=== PATIENT | male | born 1960 | race Caucasian/White ===

== ENCOUNTER 2020-03-08 16:18 | Inpatient (IN) | payer BC ==
[~2020-03-08] VITALS: Ht 180.3 cm; Wt 98.7 kg
[2020-03-08 17:10] LABS: BASOPHILS ABSOLUTE AUTO 0.05 K/mm3 (0.00-0.23); BASOPHILS PERCENT AUTO 1 % (0-2); EOSINOPHILS ABSOLUTE AUTO 0.09 K/mm3 (0.00-0.68); EOSINOPHILS PERCENT AUTO 1 % (0-6); IMMATURE GRAN ABSOLUTE AUTO 0.04 K/mm3 (0.00-0.10); IMMATURE GRAN PERCENT AUTO 0 % (0-1); LYMPHOCYTES ABSOLUTE AUTO 1.99 K/mm3 (0.84-5.20); LYMPHOCYTES PERCENT AUTO 19 % (21-46); MONOCYTES ABSOLUTE AUTO 1.64 K/mm3 (0.16-1.47); MONOCYTES PERCENT AUTO 15 % (4-13); Mean Corpuscular HGB 23.8 pg (26.0-34.0); Mean Corpuscular HGB Conc 28.1 g/dL (31.5-36.5); Mean Corpuscular Volume 85 fL (80-100); Mean Platelet Volume 10.1 fL (9.1-12.4); NEUTROPHILS ABSOLUTE AUTO 6.91 K/mm3 (1.96-9.15); NEUTROPHILS PERCENT AUTO 64 % (41-73); Platelet Count 326 K/mm3 (150-400); RDW Coefficient Variation 21.1 % (11.7-14.2); RDW Standard Deviation 64.8 fL (35.1-46.3); Red Blood Cell Count 2.02 M/mm3 (4.30-5.90); White Blood Cell Count 10.72 K/mm3 (4.00-11.30)
[2020-03-08 17:17] LABS: Hematocrit 17.1 % (37.0-53.0)
[2020-03-08 17:18] LABS: Hemoglobin 4.8 g/dL (13.5-17.5)
[2020-03-08 17:29] LABS: Alanine Aminotransfer (ALT/SGP 65 U/L (12-78); Albumin, Blood 3.4 g/dL (3.4-5.0); Albumin/Globulin Ratio 0.7 (0.8-1.8); Alk Phos 78 U/L (50-136); Anion Gap 7 mmol/L (6-16); Aspartate Aminotrans (AST/SGOT 150 U/L (12-37); Bilirubin, Total 0.5 mg/dL (0.1-1.0); Blood Urea Nitrogen 29 mg/dL (8-24); Bun/Creatinine Ratio 22.7 (12.0-20.0); CO2, Blood 22 mmol/L (21-32); Calcium, Blood 8.7 mg/dL (8.5-10.1); Chloride, Blood 110 mmol/L (98-108); Creatinine, Blood 1.28 mg/dL (0.60-1.20); Globulin, Blood 4.7 g/dL (2.2-4.0); Glomerular Filtration Rate >60 (60-); Glucose, Blood 103 mg/dL (70-99); Potassium, Blood 3.8 mmol/L (3.5-5.5); Sodium, Blood 139 mmol/L (136-145); Total Protein, Blood 8.1 g/dL (6.4-8.2)
[2020-03-08] MEDS ORDERED: ASPI325EC PO (19:07)
[2020-03-08 19:20] LABS: International Normalized Ratio 1.03
--- NOTE | 2020-03-08 21:15 | NUR ---
RECEIVED PT FROM ER TOYA BULLARD. PT A&OX3. DENIES PAIN OR NAUSEA. PT HAS HX-HTN. HAS BEEN HAVING BLACK STOOLS FOR APROXIMATELY 1 MONTH. EARLIER TODAY, HE BECAME DIZZY AND SOUGHT MEDICAL ATTENTION. HE WAS FOUND TO BE QUITE ANEMIC WITH H&H 4.8/17.1-ER GAVE 2 UNITS PRBC'S. PT SKIN PALE, BUT WARM AND DRY. HE DENIES DIZZINESS AT PRESENT. ECG SHOWS ST WITH RATE 110'S. BP STABLE. LUNGS CLEAR-NO NOTED SOB. SATS>90% ON RA. PROTONIX BOLUS OF 80 MG IVP X 1 GIVEN, THEN PROTONIX DRIP @ 8 MG/HR INITIATED. ANTICIPATE TRANSFUSING ONE MORE UNIT PRBC'S AND THEN RE-CHECK H&H. DR. HDZ NOTIFIED OF CONSULT. PT TO REMAIN NPO FOR POSSIBLE EGD IN AM- DR. HDZ WISHES FOR CARDIOLOGY TO SEE PT TO CLEAR FOR SENIOR MAINTENANCE MECHANIC PT HAD ELEVATED TROPONIN AND ST DEPRESSION ON 12 LEAD ECG. DISCUSSED THE REQUEST FOR CARDIOLOGY CLEARANCE WITH JOSE BLACK-SHE WILL DISCUSS WITH HOSPITALIST IN AM.
[2020-03-08 21:30] LABS: Percent Saturation 2.7 % (20.0-50.0)
--- NOTE | 2020-03-08 22:28 | NUR ---
THIRD UNIT OF PRBC'S TRANSFUSING. PT DENIES COMPLAINTS. HR CONTINUES IN THE 100'S. PT ABLE TO POSITION HIMSELF IN BED. URINAL AND CALL LIGHT PLACED WITHIN PT REACH. PT WILL CALL FOR ASSISTANCE PRN.
--- NOTE | 2020-03-09 00:24 | NUR ---
3RD UNIT OF PRBC'S COMPLETE. VS REMAIN STABLE. LUNGS CLEAR. PT DENIES COMPLAINTS. HE CONTINUES TO POSITION HIMSELF IN BED WITHOUT DIFFICULTY. TROP TO BE DRAWN AT 0100-WILL RE-CHECK H&H AT THAT TIME WELL.
[2020-03-09 01:11] LABS: Hematocrit 22.5 % (37.0-53.0)
--- NOTE | 2020-03-09 01:14 | NUR ---
TROP AND H&H DRAWN. PT UTILIZED CALL SYSTEM TO REQUEST ASSISTANCE USING THE URINAL. PT ABLE TO STAND AT THE BEDSIDE AND USE URINAL WITHOUT DIFFICULTY-VOIDED 300 CC DARK, YELLOW URINE.
--- NOTE | 2020-03-09 02:00 | NUR ---
PRBC UNIT #4 TRANSFUSING. PT ONLY COMPLAINT IS THAT HE HASN'T BEEN ABLE TO SLEEP TONIGHT.
--- NOTE | 2020-03-09 04:17 | NUR ---
#4 UNIT PRBC'S TRANSFUSING. PT RESTING QUIETLY WHEN NOT DISTURBED. HR NOW 90'S BP STABLE. WILL RE-CHECK H&H ONCE PRBC'S COMPLETE-AM LABS TO BE DRAWN AT THAT TIME WELL.
[2020-03-09 05:01] LABS: BASOPHILS ABSOLUTE AUTO 0.04 K/mm3 (0.00-0.23); BASOPHILS PERCENT AUTO 1 % (0-2); EOSINOPHILS ABSOLUTE AUTO 0.13 K/mm3 (0.00-0.68); EOSINOPHILS PERCENT AUTO 2 % (0-6); Hematocrit 27.8 % (37.0-53.0); Hemoglobin 8.7 g/dL (13.5-17.5); IMMATURE GRAN ABSOLUTE AUTO 0.04 K/mm3 (0.00-0.10); IMMATURE GRAN PERCENT AUTO 1 % (0-1); LYMPHOCYTES ABSOLUTE AUTO 1.82 K/mm3 (0.84-5.20); LYMPHOCYTES PERCENT AUTO 30 % (21-46); MONOCYTES ABSOLUTE AUTO 0.69 K/mm3 (0.16-1.47); MONOCYTES PERCENT AUTO 11 % (4-13); Mean Corpuscular HGB 25.8 pg (26.0-34.0); Mean Corpuscular HGB Conc 31.3 g/dL (31.5-36.5); Mean Corpuscular Volume 83 fL (80-100); Mean Platelet Volume 10.1 fL (9.1-12.4); NEUTROPHILS ABSOLUTE AUTO 3.44 K/mm3 (1.96-9.15); NEUTROPHILS PERCENT AUTO 56 % (41-73); Platelet Count 232 K/mm3 (150-400); RDW Coefficient Variation 18.6 % (11.7-14.2); RDW Standard Deviation 55.1 fL (35.1-46.3); Red Blood Cell Count 3.37 M/mm3 (4.30-5.90); White Blood Cell Count 6.16 K/mm3 (4.00-11.30)
[2020-03-09 05:17] LABS: Anion Gap 7 mmol/L (6-16); Blood Urea Nitrogen 24 mg/dL (8-24); Bun/Creatinine Ratio 19.8 (12.0-20.0); CO2, Blood 22 mmol/L (21-32); Calcium, Blood 8.2 mg/dL (8.5-10.1); Chloride, Blood 110 mmol/L (98-108); Creatinine, Blood 1.21 mg/dL (0.60-1.20); Glomerular Filtration Rate >60 (60-); Glucose, Blood 96 mg/dL (70-99); Potassium, Blood 4.3 mmol/L (3.5-5.5); Sodium, Blood 139 mmol/L (136-145)
--- NOTE | 2020-03-09 05:54 | NUR ---
PT APPEARS TO BE SLEEPING. NO NOTED DISTRESS.
--- NOTE | 2020-03-09 07:22 | NUR ---
REC'D REPORT FROM MALCOLM KIDD, AND AM NO ASSUMING CARE OF THIS PT.
--- NOTE | 2020-03-09 07:23 | NUR ---
CALLED IN CARDIO CONSULT TO DR RAMIREZ AND GI CONSULT TO DR HDZ PER ANSWERING SERVICE.
--- NOTE | 2020-03-09 07:48 | NUR ---
AM ASSESSMENT: PT IS ALERT AND ORIENTED X3. PLEASANT AND COOPERATIVE WITH CARE. PT INDEPENDENT IN ROOM AND USES CALL LIGHT APPROPRIATELY. EDUCATED PT ON PENDING CARDIO/GI CONSULTS. PT DENIES ANY PAIN/CHEST PAIN/NAUSEA. LUNGS ARE CLEAR T/O BILATERALLY. SP02 >90% ON RA. HR REGULAR, ST-LOW 100'S RANGE. PROTONIX GTT INFUSING FOR GIB. ABD SLIGHTLY DISTENDED/NON-TENDER TO PALPATION. BT'S HYPOACTIVE X4 QAUDS. PT NPO AT THIS TIME. PENDING GI CONSULT. CARDIO CONSULT FIRST, R/T ELEVATED TROPONIN, TO CLEAR PT PRIOR TO GI CONSULT.
--- NOTE | 2020-03-09 08:05 | NUR ---
DR CHARLTON IN TO ASSESS PT. DR RAMIREZ UPDATED DR GONZALES AND PT HAS BEEN CLEARED BY CARDIO FOR GI DR TO F/U AT THIS POINT. DISCUSSED F/U H+H'S WITH DR GONZALES, NONE ARE ORDERED.
[2020-03-09 08:57] LABS: Hematocrit 25.3 % (37.0-53.0)
--- NOTE | 2020-03-09 09:06 | NUR ---
Echocardiogram completed.
--- NOTE | 2020-03-09 10:53 | NUR ---
DR HDZ IN TO ASSESS PT. PLANS TO SCOPE PT AROUND NOON.
--- NOTE | 2020-03-09 13:19 | NUR ---
PT UPDATE: PT CURRENTLY BEING SCOPED PER DAY SURGERY TEAM/ANESTHESIA/DR HDZ. SEE OPERATIVE NOTES.
--- NOTE | 2020-03-09 13:24 | NUR ---
POST ENDOSCOPY: ENDO COMPLETE. PT REMAINS STABLE. AREAS OF BLEEDING CLIPPED/INJECTED WITH EPI. PT NOW MEDICAL STATUS, NO TELEMETRY. NURSING SERVICE STATION MANAGER AWARE.
--- NOTE | 2020-03-09 13:47 | NUR ---
03/09/20 1347 FELICE BERRY LATE ENTRY 1307 History, Chart, Medications and Allergies reviewed before start of procedure. 3-LEAD EKG REVIEWED WITH PHYSICIAN PRIOR TO START OF PROCEDURE. O2 VIA N/C INTACT THROUGHOUT SEDATION/PROCEDURE. MONITOR INTACT WITH CONTINUOUS PULSE OXIMETRY AND INTERMITTENT BP. MAC WITH DR. WARD.
[2020-03-09 14:28] LABS: Hematocrit 28.1 % (37.0-53.0); Hemoglobin 8.7 g/dL (13.5-17.5)
--- NOTE | 2020-03-09 14:47 | NUR ---
REPORTED OFF TO MALCOLM COFFEY WHOM WILL ASSUME CARE OF THIS PT ONCE PT MOVES TO 312.
--- NOTE | 2020-03-09 15:00 | NUR ---
PT TRANSFERRED: PT TNX'D TO 312 VIA W/C, PER WENDI KING. CHART AND ALL PT BELONGINGS SENT WITH PT.
--- NOTE | 2020-03-09 17:19 | NUR ---
new pt from [facility], family in visiting, call light in reach, indapendant in rm, call light in reach, 2 iv's in l arm, rm air, denies dizzyness will continue to monitor and treat as until share bsr with staff and pt
[2020-03-09 20:47] LABS: Hemoglobin 8.6 g/dL (13.5-17.5)
[2020-03-10 04:16] LABS: Hematocrit 26.7 % (37.0-53.0); Hemoglobin 8.3 g/dL (13.5-17.5); Mean Corpuscular HGB 25.7 pg (26.0-34.0); Mean Corpuscular HGB Conc 31.1 g/dL (31.5-36.5); Mean Corpuscular Volume 83 fL (80-100); Platelet Count 276 K/mm3 (150-400); RDW Standard Deviation 57.1 fL (35.1-46.3); Red Blood Cell Count 3.23 M/mm3 (4.30-5.90); White Blood Cell Count 10.88 K/mm3 (4.00-11.30)
[2020-03-10 04:39] LABS: Bun/Creatinine Ratio 12.6 (12.0-20.0); Calcium, Blood 8.1 mg/dL (8.5-10.1); Creatinine, Blood 1.35 mg/dL (0.60-1.20); Magnesium, Blood 2.1 mg/dL (1.6-2.4)
--- NOTE | 2020-03-10 06:46 | NUR ---
SHIFT SUMMARY PATIENT ALERT AND ORIENTED. ABLE TO AMBULATE AROUND HIS ROOM INDEPENDENTLY WITH NO COMPLAINTS OF DIZZINESS. TELEMETRY IN PLACE AND RUNNING SINUS RHYTHM. IV IN PATIENT'S LEFT WRIST REMOVED AT HIS REQUEST. IV IN LEFT AC PATENT AND FLUSHED. BED IN LOWEST POSITION WITH WHEELS LOCKED. CALL LIGHT AND BELONGINGS WITHIN REACH. REPORT GIVEN TO ONCOMING RN.
[2020-03-10 13:36] LABS: Hematocrit 27.6 % (37.0-53.0); Hemoglobin 8.4 g/dL (13.5-17.5); Mean Corpuscular HGB 25.8 pg (26.0-34.0); Mean Corpuscular HGB Conc 30.4 g/dL (31.5-36.5); Mean Corpuscular Volume 85 fL (80-100); Mean Platelet Volume 9.9 fL (9.1-12.4); Platelet Count 284 K/mm3 (150-400); RDW Coefficient Variation 19.4 % (11.7-14.2); RDW Standard Deviation 59.6 fL (35.1-46.3); Red Blood Cell Count 3.25 M/mm3 (4.30-5.90); White Blood Cell Count 9.91 K/mm3 (4.00-11.30)
[2020-03-10] MEDS ORDERED: Acetaminophen325 M1 PO (16:23)
[2020-03-10] MEDS ORDERED: Isosorbide Mono30 MG PO (16:24)
[2020-03-10] MEDS ORDERED: ATOR80 PO (16:24)
[2020-03-10] MEDS ORDERED: METO50ER PO (16:25)
[2020-03-10] MEDS ORDERED: TORSE20 PO (16:26)
[2020-03-10] MEDS ORDERED: PANT40 PO (16:27)
[2020-03-10] MEDS ORDERED: FEROSUL325 M1 PO (16:28)
[2020-03-10] MEDS ORDERED: MIRALAX17 GM PO (16:29)
--- NOTE | 2020-03-10 17:00 | NUR ---
DISCHARGE SUMMARY PT DISCHARGED TO HOME. PT LEFT ROOM JUST PRIOR TO THIS NOTE VIA STEADY GAIT WITH IT PROGRAMMER ANS SPOUSE ESCORT. PT EDUCATED ON ALL DISCHARGE INSTRUCTIONS, ALL QUESTIONS ANSWERED AND PT AGREES TO FOLLOW UP WITH PCP, GI AND CARIOLOGIST ORDERED. IV REMOVED AND BELONGINGS RETURNED.
== END 2020-03-10 17:05 | disposition home or self-care (01) | DRG 377 ==
LOC: ER 16:18 → ICUE 16:19 → ICUW 16:19 → ICUE 21:09 → MEDS 03-09 13:53 → ICUE 03-09 13:54 → MEDS 03-09 15:04
PROVIDERS: Hospitalist; Internal Medicine; Nurse Practitioner Acute Care; Physician Assistant; Student in an Organized Health Care Education/Training Program; ADMIT Internal Medicine
PROC: 0DD68ZX Extraction of Stomach, Via Natural or Artificial Opening Endoscopic, Diagnostic (ICD-10-PCS; 2020-03-09)
PROC: 30233N1 Transfusion of Nonautologous Red Blood Cells into Peripheral Vein, Percutaneous Approach (ICD-10-PCS; principal; 2020-03-09 12:45)
PROC: 0W3P8ZZ Control Bleeding in Gastrointestinal Tract, Via Natural or Artificial Opening Endoscopic (ICD-10-PCS; 2020-03-09 12:45)
DX: K25.4 Chronic or unspecified gastric ulcer with hemorrhage (principal); I21.4 Non-ST elevation (NSTEMI) myocardial infarction; D62 Acute posthemorrhagic anemia; I50.30 Unspecified diastolic (congestive) heart failure; Z79.82 Long term (current) use of aspirin; I25.10 Atherosclerotic heart disease of native coronary artery without angina pectoris; I34.0 Nonrheumatic mitral (valve) insufficiency; I11.0 Hypertensive heart disease with heart failure; I50.9 Heart failure, unspecified
CPT/HCPCS: 36415; 36430; 71046; 80048; 80053; 82272; 82728; 83540; 83550; 83735; 83880; 84100; 84484; 85014; 85018; 85025; 85027; 85610; 85730; 86850; 86900; 86901; 86920; 93005; 93010; 93306; 96374; 96375; 96376; 99285-25; A9270; A9270-GY; C9113; G0378; J0171; J2370; J2704; J2916; J7030; J7050; J7120; P9016

== ENCOUNTER → 2020-04-07 | Outpatient (CLI) | payer BC ==
[~2020-04-07] MED LIST: ASPI325EC PO; ATOR80 PO; Acetaminophen325 M1 PO; FEROSUL325 M1 PO; Isosorbide Mono30 MG PO; METO50ER PO; MIRALAX17 GM PO; PANT40 PO; TORSE20 PO
[2020-04-07 14:43] LABS: Anion Gap 8 mmol/L (6-16); Blood Urea Nitrogen 24 mg/dL (8-24); Bun/Creatinine Ratio 18.8 (12.0-20.0); CO2, Blood 23 mmol/L (21-32); Calcium, Blood 9.2 mg/dL (8.5-10.1); Chloride, Blood 109 mmol/L (98-108); Creatinine, Blood 1.28 mg/dL (0.60-1.20); Glomerular Filtration Rate >60 (60-); Glucose, Blood 163 mg/dL (70-99); Potassium, Blood 3.9 mmol/L (3.5-5.5); Sodium, Blood 140 mmol/L (136-145)
== END | disposition home or self-care (01) ==
LOC: LAB 10:15 → LAB SHORT 10:15
PROVIDERS: Family Medicine
DX: D64.9 Anemia, unspecified (principal); R35.1 Nocturia
CPT/HCPCS: 80048; G0103

== ENCOUNTER 2025-03-09 12:18 | Inpatient (IN) | payer BC ==
[~2025-03-09] VITALS: Ht 180.3 cm; Wt 97.4 kg
[~2025-03-09 12:18] MED LIST changes: +AMLO5 PO; +LOW DOSE ASPIRI81 M1; +PLAVIX75 MG PO
[2025-03-09] MEDS ORDERED: Diltiazem HCl 5 MG / ML 5ML Vial IV ONE ×2 (13:15→15:30)
[2025-03-09] MEDS ORDERED: NS 1,000 ML IV SCH ×2 (13:15→22:20)
[2025-03-09 13:31] LABS: BASOPHILS ABSOLUTE AUTO 0.04 K/mm3 (0.00-0.23); BASOPHILS PERCENT AUTO 0 % (0-2); EOSINOPHILS ABSOLUTE AUTO 0.05 K/mm3 (0.00-0.68); EOSINOPHILS PERCENT AUTO 0 % (0-6); Hematocrit 45.9 % (37.0-53.0); Hemoglobin 15.5 g/dL (13.5-17.5); IMMATURE GRAN ABSOLUTE AUTO 0.04 K/mm3 (0.00-0.10); IMMATURE GRAN PERCENT AUTO 0 % (0-1); LYMPHOCYTES PERCENT AUTO 11 % (21-46); MONOCYTES PERCENT AUTO 9 % (4-13); Mean Corpuscular HGB 32.8 pg (26.0-34.0); Mean Corpuscular HGB Conc 33.8 g/dL (31.5-36.5); Mean Corpuscular Volume 97 fL (80-100); Mean Platelet Volume 11.2 fL (9.1-12.4); NEUTROPHILS ABSOLUTE AUTO 9.35 K/mm3 (1.96-9.15); NEUTROPHILS PERCENT AUTO 79 % (41-73); Platelet Count 204 K/mm3 (150-400); RDW Coefficient Variation 12.7 % (11.7-14.2); RDW Standard Deviation 45.6 fL (35.1-46.3); Red Blood Cell Count 4.73 M/mm3 (4.30-5.90); White Blood Cell Count 11.88 K/mm3 (4.00-11.30)
[2025-03-09 13:46] LABS: Albumin, Blood 3.5 g/dL (3.4-5.0); Albumin/Globulin Ratio 0.7 (0.8-1.8); Bilirubin, Total 1.3 mg/dL (0.1-1.0); Bun/Creatinine Ratio 21.6 (12.0-20.0); Calcium, Blood 9.1 mg/dL (8.5-10.1); Creatinine, Blood 1.11 mg/dL (0.60-1.20); Globulin, Blood 4.8 g/dL (2.2-4.0); Potassium, Blood 4.6 mmol/L (3.5-5.5); Total Protein, Blood 8.3 g/dL (6.4-8.2)
[2025-03-09] MEDS ORDERED: METO50ER PO (15:07)
[2025-03-09] MEDS ORDERED: Metoprolol Succinate 25 MG TABCR PO ONE (15:10)
[2025-03-09] MEDS ORDERED: dilTIAZem HCL 125 MG in Dextrose 5% 100 ML IV SCH (15:30)
[2025-03-09 17:40] VITALS: BP 125/80; BP 135/102
--- NOTE | 2025-03-09 18:00 | NUR ---
SHIFT SUMMARY: PT ARRIVED FROM THE ED VIA GURNEY WITH CARDIZEM DRIP RUNNING AT 10MG/HR. PTS HR IN THE 120-130'S. CARDIZEM TURNED UP TO 15. PT DENIES ANY COMPLAINTS OF CP, PRESSURE, TIGHTNESS OR SOB. B/P HYPERTENSIVE, OTHERWISE VSS. PT A&OX4. ANSWERS QUESTIONS APPROPRIATELY AND FOLLOWS COMMANDS. WILL CONTINUE TO CARE FOR PT TILL END OF SHIFT.
[2025-03-09] MEDS ORDERED: Famotidine 20 MG Tab PO SCH (21:00)
[2025-03-09] MEDS ORDERED: Apixaban 5 MG Tab PO SCH (21:00)
[2025-03-09] MEDS ORDERED: Metoprolol Succinate 50 MG TABCR PO SCH (21:00)
[2025-03-09 21:22] VITALS: BP 117/76
[2025-03-09 23:50] VITALS: BP 110/84
[2025-03-10 03:34] VITALS: BP 188/129
[2025-03-10 04:04] LABS: BASOPHILS ABSOLUTE AUTO 0.05 K/mm3 (0.00-0.23); BASOPHILS PERCENT AUTO 0 % (0-2); EOSINOPHILS ABSOLUTE AUTO 0.14 K/mm3 (0.00-0.68); EOSINOPHILS PERCENT AUTO 1 % (0-6); Hematocrit 48.7 % (37.0-53.0); Hemoglobin 16.3 g/dL (13.5-17.5); IMMATURE GRAN ABSOLUTE AUTO 0.05 K/mm3 (0.00-0.10); IMMATURE GRAN PERCENT AUTO 0 % (0-1); LYMPHOCYTES ABSOLUTE AUTO 2.15 K/mm3 (0.84-5.20); LYMPHOCYTES PERCENT AUTO 18 % (21-46); MONOCYTES ABSOLUTE AUTO 1.53 K/mm3 (0.16-1.47); MONOCYTES PERCENT AUTO 13 % (4-13); Mean Corpuscular HGB 33.2 pg (26.0-34.0); Mean Corpuscular HGB Conc 33.5 g/dL (31.5-36.5); Mean Corpuscular Volume 99 fL (80-100); Mean Platelet Volume 10.9 fL (9.1-12.4); NEUTROPHILS ABSOLUTE AUTO 8.14 K/mm3 (1.96-9.15); NEUTROPHILS PERCENT AUTO 68 % (41-73); Platelet Count 202 K/mm3 (150-400); RDW Standard Deviation 47.6 fL (35.1-46.3); Red Blood Cell Count 4.91 M/mm3 (4.30-5.90); White Blood Cell Count 12.06 K/mm3 (4.00-11.30)
[2025-03-10 04:24] LABS: Bun/Creatinine Ratio 18.3 (12.0-20.0); Calcium, Blood 8.6 mg/dL (8.5-10.1); Creatinine, Blood 1.15 mg/dL (0.60-1.20); Potassium, Blood 4.1 mmol/L (3.5-5.5)
[2025-03-10 07:26] VITALS: BP 145/97
[2025-03-10] MEDS ORDERED: Metoprolol Succinate 50 MG TABCR PO ONE (09:40)
[2025-03-10 11:43] VITALS: BP 136/98
[2025-03-10] MEDS ORDERED: Furosemide 10 MG / ML 2ML Vial IV SCH (16:00)
[2025-03-10 16:57] VITALS: BP 128/109
--- NOTE | 2025-03-10 18:27 | NUR ---
SHIFT SUMMARY: PT A&OX4, FOLLOWS COMMANDS AND MAKES NEEDS KNOWN TO STAFF. PT HAS BEEN GETTING UP TO THE BATHROOM INDEPENDENTLY. PT COMPLAINED OF FEELING LIGHTHEADED WHEN HE GOT UP TO THE BATHROOM A COUPLE OF TIMES DURING THE SIDE AND HAD AN EPISODE OF NAUSEA AND VOMITED. PT HAS NOT HAD AN EPISODE SINCE. PT STARTED ON DIEURETICES THIS EVENING. PT TAKEN OFF DILT GTT AROUND NOON AND HR WAS STABLE IN THE 90-100'S. PT STARTED TO BECOME MORE TACHYCARDIC AROUND 1600 IN THE 120-140'S. PROVIDER NOTIFIED AWAITING MED ORDERS. NO OTHER SIGNIFICANT EVENTS HAPPENED DURING THIS SHIFT WILL CONTINUE TO CARE FOR PT TILL END OF SHIFT.
[2025-03-10] MEDS ORDERED: Digoxin 0.25 MG/ML 2ML Amp IV SCH (18:30)
[2025-03-10 19:55] VITALS: BP 162/112
[2025-03-10] MEDS ORDERED: Metoprolol Succinate 50 MG TABCR PO SCH (21:00)
[2025-03-10] MEDS ORDERED: Temazepam 7.5 MG Cap PO PRN (21:00)
[2025-03-11] VITALS (7 sets, daily range): BP systolic 126–152; BP diastolic 84–102
--- NOTE | 2025-03-11 06:17 | NUR ---
PT STABLE THROUGHOUT SHIFT. HEART RATE IMPROVED, RHYTHM REMAINS IN AFIB. VITAL SIGNS OTHERWISE WNL. PT AOX4, INDEPENDENT TO BR, USING URINAL TO ALLOW MEASURING OF OUTPUT. PT CALM AND COOPERATIVE. PT TAKES PILLS WHOLE WITH WATER. PT USES CALL LIGHT APPROPRIATELY AND ABLE TO MAKE NEEDS KNOWN.
[2025-03-11 08:48] LABS: Bun/Creatinine Ratio 17.2 (12.0-20.0); Calcium, Blood 9.2 mg/dL (8.5-10.1); Creatinine, Blood 1.22 mg/dL (0.60-1.20); Magnesium, Blood 2.1 mg/dL (1.6-2.4); Potassium, Blood 4.2 mmol/L (3.5-5.5)
[2025-03-11] MEDS ORDERED: PredniSONE 20 MG Tab PO SCH (09:00)
[2025-03-11] MEDS ORDERED: Digoxin 0.125 MG Tab PO SCH (09:00)
[2025-03-11] MEDS ORDERED: Spironolactone 12.5 MG TAB PO ONE (09:40)
[2025-03-11] MEDS ORDERED: Metoprolol Succinate 50 MG TABCR PO ONE (09:40)
[2025-03-11 10:00] LABS: Digoxin (Lanoxin) 1.23 ug/mL (0.80-2.00)
[2025-03-11] MEDS ORDERED: Potassium Chloride 20 MEQ TabCR PO ONE (10:00)
[2025-03-11] MEDS ORDERED: Empagliflozin 10 MG TAB PO SCH (10:00)
[2025-03-11] MEDS ORDERED: Sacubitril/Valsartan 24 MG-26 MG Tab PO SCH (12:00)
--- NOTE | 2025-03-11 18:29 | NUR ---
SHIFT SUMMARY: OT A&OX4 THROUGHOUT SHIFT. PT WAS INDEPENDENT IN HIS ROOM ALL DAY WITH NO COMPLAINTS OF CP, PRESSURE, TIGHTNESS, SOB OR LIGHTHEADEDNESS. PTS HR WAS UNABLE TO BE MANAGED DESPITE SEVERAL MEDICATIONS. PTS BLOOD PRESSURE HAS BEEN HYPERTENSIVE OFF AND ON THROUGHOUT SHIFT AND HR HAS BEEN TRENDINGIN THE 110-130'S. DIET AID CAME TO SEE PT AND PLANS FOR A MACO CARDIOVERSION IN THE AM. PT AGREEABLE TO PLAN OF CARE. NO OTHER SIGNIFICANT EVENTS HAPPENED DURING SHIFT. WILL CONTINUE TO CARE FOR PT TILL END OF SHIFT.
[2025-03-11] MEDS ORDERED: AmLODIPine Besylate 5 MG Tab PO SCH (21:00)
[2025-03-11] MEDS ORDERED: Metoprolol Succinate 50 MG TABCR PO SCH (21:00)
[2025-03-11] MEDS ORDERED: Metoprolol Succinate 25 MG TABCR PO SCH (21:00)
[2025-03-12] VITALS (14 sets, daily range): BP systolic 88–154; BP diastolic 61–102
[2025-03-12 05:01] LABS: Bun/Creatinine Ratio 19.2 (12.0-20.0); Calcium, Blood 9.5 mg/dL (8.5-10.1); Creatinine, Blood 1.3 mg/dL (0.60-1.20); Magnesium, Blood 2.1 mg/dL (1.6-2.4); Potassium, Blood 4.8 mmol/L (3.5-5.5)
--- NOTE | 2025-03-12 05:31 | NUR ---
SHIFT SUMMURY: A/O X4. BP STABLE WITH MAP>65. O2 SATURATION > 90 ON RA. AFIB/HR IN THE 92-112. DENIES CHEST PAIN/ PRESSURE. CALLS APPROPRIATELY. NPO STATUS MAINTAINED FOR MACO CARDIOVERSION IN AM. CALLS APPROPRIATELY. CALL BEJARANO IS WITHIN REACH AND BED IS AT THE LOWEST POSITION.
[2025-03-12] MEDS ORDERED: Pantoprazole Sodium 20 MG Tab PO SCH (06:00)
[2025-03-12] MEDS ORDERED: propofoL 0 ML IV ONE (06:08)
[2025-03-12] MEDS ORDERED: Lidocaine HCl 2% 20 ML MDV ONE (06:08)
[2025-03-12] MEDS ORDERED: propofoL 20 ML IV ONE (06:10)
[2025-03-12] MEDS ORDERED: ePHEDrine Sulfate 50 MG/ML 1ML Injection ONE (06:28)
[2025-03-12] MEDS ORDERED: NS 1,000 ML IV ONE (06:36)
[2025-03-12] MEDS ORDERED: Benzocaine Oral Spray 0.5ML UD ONE (06:43)
--- NOTE | 2025-03-12 07:32 | NUR ---
ASSUMED CARE FROM ANESTHESIA. PT AWAKE AND VERBALIZING WELL. AFIB 130-150 BPM POST MACO.
[2025-03-12] MEDS ORDERED: Digoxin 0.5 MG in NS 8 ML IV STA (07:40)
--- NOTE | 2025-03-12 07:56 | NUR ---
PATIENT LEFT FOR MACO/ CARDIOVERSION VIA BED AT 0652.
[2025-03-12] MEDS ORDERED: Metoprolol Succinate 50 MG TABCR PO SCH (08:00)
[2025-03-12] MEDS ORDERED: Spironolactone 25 MG Tab PO SCH (09:00)
[2025-03-12] MEDS ORDERED: Spironolactone 12.5 MG TAB PO SCH (09:00)
[2025-03-12] MEDS ORDERED: Spironolactone 50 MG Tab PO SCH (09:00)
[2025-03-12] MEDS ORDERED: Torsemide 20 MG TAB PO SCH (09:00)
--- NOTE | 2025-03-12 16:46 | NUR ---
SHIFT SUMMARY KODAK POWELLX4 ABLE TO MAKE NEEDS KNOWN. HE DENIES CHEST PAIN OR SOB. HE IS INDEPENDENT IN HIS ROOM. HIS VITALS ARE STABLE AND HIS 02 SATS ARE 90% OR GREATER ON ROOM AIR. HE CAME BACK FROM [facility] THIS MORNING HE DID NOT HAVE THE CARDIOVERSION. THE DOCTOR UPDATED HIM THAT HE HAD A THROMBUS AND WILL REMAIN ON BLOOD THINNERS. DIGOXIN WAS GIVEN THIS MORNING, HEART RATE IS NOW CONTROLLED AT 90-100s.
[2025-03-13 00:21] VITALS: BP 92/68
[2025-03-13 05:04] LABS: Bun/Creatinine Ratio 20.7 (12.0-20.0); Calcium, Blood 9.3 mg/dL (8.5-10.1); Creatinine, Blood 1.64 mg/dL (0.60-1.20); Magnesium, Blood 2.2 mg/dL (1.6-2.4)
--- NOTE | 2025-03-13 05:29 | NUR ---
A/O X4. SATURATION > 90 ON RA. BP STABLE WITH MAP >65. AFIB RATE OF 92 TO 110 WHEN UP IN BED. DENIES CHEST PAIN/PRESSURE/SOB. AMBULATES INDEPENDENTLY TO THE BATHROOM. CALLS APPROPRIATLY. EDUCATED ABOUT THE PLAN OF CARE. CALL BEJARANO IS WITHIN REACH AND BED AT THE LOWEST POSITION.
[2025-03-13 05:56] VITALS: BP 119/74
--- NOTE | 2025-03-13 07:19 | NUR ---
ASSUMPTION NOTE: THIS RN TO ASSUME CARE OF PATIENT. PATIENT IN BED AWAKE WATCHING TV. PATIENT DENIED CHEST PAIN/PRESSURE. HAS CALL LIGHT WITHIN REACH & BED IN LOWEST POSITION, STATING NOTHIGN IS NEEDED AT THIS TIME.
[2025-03-13 07:43] VITALS: BP 128/81
[2025-03-13] MEDS ORDERED: KAPSPARGO SPRI100 MG PO (12:26)
[2025-03-13] MEDS ORDERED: ELIQUIS5 M2 PO (12:26)
[2025-03-13] MEDS ORDERED: JARDIANCE10 MG PO (12:26)
[2025-03-13] MEDS ORDERED: ENTRESTO 24 MG1 EACH PO (12:27)
[2025-03-13] MEDS ORDERED: PANTOPRAZOLE SO20 M2 PO (12:27)
[2025-03-13] MEDS ORDERED: TEMA7.5 PO (12:28)
[2025-03-13] MEDS ORDERED: MELA3 PO (12:28)
--- NOTE | 2025-03-13 13:26 | NUR ---
DISCHARGE NOTE: PATIENT DISCHARGED VIA HOME, WAS RIDE. THIS RN WENT OVER DISCHARGE PACKET AND PATIENT AWARE OF NEW MEDICATIONS & TO FOLLOW UP WITH HIS PRIMARY TUESDAY WITH HIS SCHEDULED APPOINTMENT. PATIENT AWARE THAT CASTING TRUCKER WILL CALL HIM TO SCHEDULE HIS FOLLOW UP APOPINTMENT. NEW MEDICATIONS WERE SENT TO HIS PHARMACY, IV TAKEN OUT & TELE REMOVED. PATIENT TOOK ALL PERSONAL BELONGINGS AND DISCHARGE PACKET.
== END 2025-03-13 13:00 | disposition home or self-care (01) | DRG 308 ==
LOC: ER 12:18 → PCU 12:19
PROVIDERS: Internal Medicine Cardiovascular Disease; Student in an Organized Health Care Education/Training Program; ADMIT Internal Medicine
DX: I48.19 Other persistent atrial fibrillation (principal); I50.43 Acute on chronic combined systolic (congestive) and diastolic (congestive) heart failure; I13.0 Hypertensive heart and chronic kidney disease with heart failure and stage 1 through stage 4 chronic kidney disease, or unspecified chronic kidney disease; N17.9 Acute kidney failure, unspecified; F10.10 Alcohol abuse, uncomplicated; I25.10 Atherosclerotic heart disease of native coronary artery without angina pectoris; E78.5 Hyperlipidemia, unspecified; I42.8 Other cardiomyopathies; N18.31 Chronic kidney disease, stage 3a; I25.2 Old myocardial infarction; Z95.5 Presence of coronary angioplasty implant and graft; Z79.82 Long term (current) use of aspirin; Z79.899 Other long term (current) drug therapy; Z87.19 Personal history of other diseases of the digestive system; Z91.148 Patient's other noncompliance with medication regimen for other reason
CPT/HCPCS: 36415; 71046; 80048; 80053; 80162; 83735; 83880; 84100; 84443; 85025; 93005; 93010; 93306; 93312; 93325; 96361; 96365; 96366; 96375; 96376; 99285-25; A9270; G0378; J1160; J1940; J2470; J2704; J7030

== ENCOUNTER 2025-06-05 07:59 | Day surgery (SDC) | payer BC ==
[2025-06-05] VITALS (10 sets, daily range): BP systolic 98–148; BP diastolic 65–93
[~2025-06-05] VITALS: Ht 180.3 cm; Wt 93.0 kg
[~2025-06-05 07:59] MED LIST changes: +Crestor40 MG PO; +ELIQUIS5 M2 PO; +ENTRESTO 24 MG1 EACH PO; +EZET10 PO; +FURO20 PO; +JARDIANCE10 MG PO; +KAPSPARGO SPRI100 MG PO; +MELA3 PO; +METO25ER PO; +PANTOPRAZOLE SO20 M2 PO; +TEMA7.5 PO
[2025-06-05] MEDS ORDERED: Verapamil HCL 2.5 MG/ML 2ML Injection ONE (09:22)
[2025-06-05] MEDS ORDERED: NS 2,000 ML IV ONE (09:23)
[2025-06-05] MEDS ORDERED: Heparin Sodium 1000 Units/ML 10ML MDV ONE (09:23)
[2025-06-05] MEDS ORDERED: NS 250 ML IV ONE (09:25)
[2025-06-05] MEDS ORDERED: NS 1,000 ML IV ONE (09:40)
[2025-06-05] MEDS ORDERED: FentaNYL Citrate 50 MCG/ML 2 ML Injection ONE (09:40)
[2025-06-05] MEDS ORDERED: Midazolam HCl 1MG / ML 2ML Vial ONE (09:40)
--- NOTE | 2025-06-05 10:38 | NUR ---
PT ARRIVES FROM [employer] INSTRUCTOR WITH R RADIAL TR BAND IN PLACE. NO BLEEDING OR HEMATOMA NOTED. VSS. NADN. CALL LIGHT WITHIN REACH. FAMILY AT BEDSIDE.
--- NOTE | 2025-06-05 11:39 | NUR ---
REMOVED 2CC OF AIR FROM TR BAND. NO BLEEDING NOTED. PT TOLERATES WELL. VSS. NADN.
--- NOTE | 2025-06-05 12:35 | NUR ---
PT TR BAND FULLY DEFLATED. NO BLEEDING NOTED. VSS. NADN. EATING LUNCH AT THIS TIME. CALL LIGHT WITHIN REACH.
--- NOTE | 2025-06-05 12:50 | NUR ---
PT AND S/O VERBALIZES UNDERSTANDING WRITTEN AND VERBAL INSTRUCTIONS. DENIES QUESTIONS OR NEEDS. PT TR BAND C/D/I. NO BLEEDING OR HEMATOMA NOTED. VSS.
--- NOTE | 2025-06-05 13:12 | NUR ---
PT DRESSESS SELF WITHOUT DIFF. AMBULATES TO AND FROM RESTROOM WITHOUT DIFF. PT IV D'CD. CATH INTACT. PRESSURE DSG APPLIED. PT TR BAND REMOVED. CLOTH DOT WITH SPLINT IN PLACE. NO BLEEDING NOTED. PT DC TO HOME VIA S/O BY ONIEL
== END 2025-06-05 13:12 | disposition home or self-care (01) ==
LOC: MHTC 07:59
DX: I25.10 Atherosclerotic heart disease of native coronary artery without angina pectoris (principal); I12.9 Hypertensive chronic kidney disease with stage 1 through stage 4 chronic kidney disease, or unspecified chronic kidney disease; I48.19 Other persistent atrial fibrillation; I42.8 Other cardiomyopathies; E78.5 Hyperlipidemia, unspecified; N18.9 Chronic kidney disease, unspecified; Z95.5 Presence of coronary angioplasty implant and graft; Z79.01 Long term (current) use of anticoagulants; Z79.899 Other long term (current) drug therapy
CPT/HCPCS: 76937; 93454; 99152; C1769; C1887; C1894; J1644; J2250; J3010; J7030; J7050; Q9967